=== PATIENT | female | born 1980 | race Caucasian/White ===

== ENCOUNTER 2020-03-15 12:21 | Emergency (ER) | payer BC ==
[~2020-03-15] VITALS: Ht 162.6 cm; Wt 71.2 kg
[2020-03-15 12:21] VITALS: BP_SYST 111
--- NOTE | 2020-03-15 12:22 | NUR ---
BROUGHT BACK TO BED #5 AND TRIAGED. REPORT GIVEN TO ABDIRAHMAN
--- NOTE | 2020-03-15 12:25 | NUR ---
ER at bedside examining patient.
--- NOTE | 2020-03-15 12:34 | NUR ---
Pt came to ER after heavy postmates delivery was made. She c/o pain to L shoulder and arm x2 days pain 10/. Pt has limited ROM, resting in aba [place]
[2020-03-15] MEDS ORDERED: KETOROLAC TROMETHAMINE 60 MG/2 ML VIAL IM ONE (13:30)
[2020-03-15 13:56] VITALS: BP_SYST 111
--- NOTE | 2020-03-15 13:56 | NUR ---
Patient given written and verbal discharge instructions and verbalizes understanding. ER MD discussed with patient the results and treatment provided. Patient in stable condition. ID arm band removed. Rx of Motrin and Otoe given. Patient educated on pain management and to follow up with PMD. Pain Scale 4/10 tolerable. Opportunity for questions provided and answered. Medication side effect fact sheet provided.
== END 2020-03-15 13:56 | disposition home or self-care (01) ==
LOC: SED 12:21
DX: R07.89 Other chest pain (principal)
CPT/HCPCS: 71045; 81025; 96372; 99283; J1885

== ENCOUNTER 2020-03-19 13:03 | Emergency (ER) | payer BC ==
[~2020-03-19] VITALS: Ht 152.4 cm; Wt 74.8 kg
[2020-03-19 13:57] VITALS: BP_SYST 114
[2020-03-19] MEDS ORDERED: IBUP-1971 PO (13:57)
[2020-03-19] MEDS ORDERED: HYDR20TA PO (13:57)
[2020-03-19 14:03] LABS: BASOPHILS % (AUTO) 0.5 % (0.0-2.0); EOSINOPHILS # (AUTO) 0.1 K/uL (0.0-0.4); EOSINOPHILS % (AUTO) 1.3 % (0.0-4.0); HEMATOCRIT 36.8 % (36-48); HEMOGLOBIN 12.2 g/dL (12.0-16.0); LYMPHOCYTES # (AUTO) 1.3 K/uL (1.0-5.5); LYMPHOCYTES % (AUTO) 28.5 % (20.5-51.5); MEAN CORPUSCULAR HEMOGLOBIN 28 pg (27-31); MEAN CORPUSCULAR HGB CONC 33 % (32-36); MEAN CORPUSCULAR VOLUME 84 fL (79.0-98.0); MONOCYTES # (AUTO) 0.3 K/uL (0.0-1.0); MONOCYTES % (AUTO) 6.9 % (1.7-9.3); NEUTROPHILS # (AUTO) 2.8 K/uL (1.8-7.7); NEUTROPHILS % (AUTO) 62.8 % (40.0-70.0); PLATELET COUNT (AUTO) 199 K/uL (130-430); RED CELL DISTRIBUTION WIDTH 13.5 % (9.0-15.0); WHITE BLOOD COUNT (AUTO) 4.4 K/uL (4.8-10.8)
[2020-03-19 14:10] LABS: ANION GAP 6 (5-15); CALCIUM 8.7 mg/dL (8.4-11.0); CHLORIDE 102 mmol/L (98-107); CREATININE 0.54 mg/dL (0.55-1.30); GLUCOSE 85 mg/dL (70-99); SODIUM SERUM 138 mmol/L (136-145); UREA NITROGEN, BLOOD 13 mg/dL (8-21)
[2020-03-19 14:11] LABS: GFR AFRICAN AMERICAN 162 mL/min (>90)
[2020-03-19 14:21] LABS: ALANINE AMINOTRANSFERASE 23 U/L (12-78); ASPARTATE AMINOTRANSFERASE 16 U/L (10-37); TOTAL BILIRUBIN 0.2 mg/dL (0.0-1.0)
[2020-03-19] MEDS ORDERED: KETOROLAC TROMETHAMINE 30 MG VIAL IM ONE (14:45)
[2020-03-19 15:08] VITALS: BP_SYST 118
== END 2020-03-19 15:08 | disposition home or self-care (01) ==
LOC: SED 13:03
DX: M79.602 Pain in left arm (principal)
CPT/HCPCS: 36415; 80053; 84484; 85025; 85379; 93005; 93971; 96372; 99285; J1885

== ENCOUNTER 2020-09-07 20:02 | Emergency (ER) | payer BC, SELFPAY ==
[~2020-09-07] VITALS: Ht 152.4 cm; Wt 70.3 kg
[~2020-09-07 20:02] MED LIST: HYDR20TA PO; IBUP-1971 PO
[2020-09-07 20:20] VITALS: BP_SYST 135
--- NOTE | 2020-09-07 20:20 | NUR ---
Patient triaged and placed in TENT. VSS and patient appears in no acute distress at this time. Accompanied by SELF, awaiting available bed, and MD notified of need for MSE.
--- NOTE | 2020-09-07 20:24 | NUR ---
ER Dr. ECHEVARRIA at bedside examining patient.
--- NOTE | 2020-09-07 20:25 | NUR ---
PT A&O X4 FROM HOME C/O OF COUGH X 3 DAYS, BODY ACHES, SORE THROAT, CONGESTION, AND LOWER BACK PAIN 06/18. PT DENIES FEVER, CHILLS, NAUSEA, VOMITING, SOB, NEW LOSS OF SENSE OF TASTE/SMELL, CONSTIPATION, DIARRHEA.
--- NOTE | 2020-09-07 21:10 | NUR ---
CRITICAL RESULTS COVID 19 POSITIVE. NOTIFIED.
--- NOTE | 2020-09-07 21:13 | NUR ---
Patient given written and verbal discharge instructions and verbalizes understanding. ER MD discussed with patient the results and treatment provided. Patient in stable condition. ID arm band removed. IV catheter removed intact and dressing applied, no active bleeding. Rx of DEXAMETHASONE, HYDROXYCHLOROQUINE SULFATE, given. Patient educated on pain management and to follow up with PMD. Pain Scale 0/10 Opportunity for questions provided and answered. Medication side effect fact sheet provided.
[2020-09-07 21:18] VITALS: BP_SYST 128
== END 2020-09-07 21:13 | disposition home or self-care (01) ==
LOC: SED 20:02
DX: U07.1 COVID-19 (principal); B34.9 Viral infection, unspecified
CPT/HCPCS: 36415; 71045; 99284

== ENCOUNTER 2021-01-13 23:40 | Emergency (ER) | payer BC, SELFPAY ==
[~2021-01-13] VITALS: Ht 165.1 cm; Wt 70.3 kg
[2021-01-13 23:40] VITALS: BP_SYST 151
[2021-01-14] MEDS ORDERED: LevALBUTEROL HCL 1.25 MG/0.5 ML *CONC.* VIAL.NEB (XOPENEX CONC.) INH ONE (00:15)
[2021-01-14 01:14] LABS: BASOPHILS % (AUTO) 0.5 % (0.0-2.0); EOSINOPHILS # (AUTO) 0.2 K/uL (0.0-0.4); EOSINOPHILS % (AUTO) 2.5 % (0.0-4.0); HEMATOCRIT 36.7 % (36-48); HEMOGLOBIN 12.5 g/dL (12.0-16.0); LYMPHOCYTES # (AUTO) 2.8 K/uL (1.0-5.5); LYMPHOCYTES % (AUTO) 35.5 % (20.5-51.5); MEAN CORPUSCULAR HEMOGLOBIN 28 pg (27-31); MEAN CORPUSCULAR HGB CONC 34 % (32-36); MEAN CORPUSCULAR VOLUME 83 fL (79.0-98.0); MONOCYTES # (AUTO) 0.4 K/uL (0.0-1.0); MONOCYTES % (AUTO) 4.9 % (1.7-9.3); NEUTROPHILS # (AUTO) 4.5 K/uL (1.8-7.7); NEUTROPHILS % (AUTO) 56.6 % (40.0-70.0); PLATELET COUNT (AUTO) 234 K/uL (130-430); RED BLOOD CELL COUNT(AUTO) 4.44 MIL/uL (4.2-6.2); RED CELL DISTRIBUTION WIDTH 13.4 % (9.0-15.0); WHITE BLOOD COUNT (AUTO) 7.9 K/uL (4.8-10.8)
[2021-01-14 01:16] LABS: CALCIUM 9.3 mg/dL (8.4-11.0); CREATININE 0.85 mg/dL (0.55-1.30); POTASSIUM 3.6 mmol/L (3.5-5.1)
[2021-01-14 01:22] LABS: ALBUMIN 3.8 g/dL (3.4-4.8); TOTAL BILIRUBIN 0.2 mg/dL (0.0-1.0)
[2021-01-14] MEDS ORDERED: ALBMDI INH (01:42)
[2021-01-14 01:50] VITALS: BP_SYST 151
== END 2021-01-14 01:50 | disposition home or self-care (01) ==
LOC: SED 23:40
DX: R05 Cough (principal); G43.909 Migraine, unspecified, not intractable, without status migrainosus; Z23 Encounter for immunization; Z88.6 Allergy status to analgesic agent; Z20.822 Contact with and (suspected) exposure to COVID-19
CPT/HCPCS: 36415; 71045; 80053; 83605; 84484; 85025; 87040; 87426; 93005; 94640; 99285; J7612